=== PATIENT | male | born 1965 | race Two or more races ===

== ENCOUNTER 2022-01-04 18:38 | Inpatient (IN) | payer OTHER ==
[~2022-01-04] VITALS: Ht 167.6 cm; Wt 78.9 kg
--- NOTE | 2022-01-04 19:55 | NUR ---
BIB [facility],C/O CONSTIPATION X 4 DAYS AND UNALBE TO URINATE. PT IS A/O X 4, RR EVEN AND UNLABORED NO SOB NOTED, VSS, NO ACUTE DISTRESS NOTED. WILL CONTINUE TO MONITOR.
[2022-01-04] MEDS ORDERED: IV NS 0.9% 1,000 ML BAG IV ONE (20:00)
--- NOTE | 2022-01-04 20:06 | NUR ---
URINE COLLECTED AND SENT TO LAB
--- NOTE | 2022-01-04 20:06 | NUR ---
BLOOD COLLECTED AND SENTT O LAB
[2022-01-04 20:41] LABS: BASOPHILS % (AUTO) 0.7 % (0.0-2.0); EOSINOPHILS % (AUTO) 1.4 % (0.0-6.0); HEMATOCRIT 28 % (39-51); HEMOGLOBIN 8.9 g/dL (13.5-17.5); LYMPHOCYTES # (AUTO) 0.7 K/uL (0.8-4.8); MEAN CORPUSCULAR HGB CONC 32 g/dl (31.0-36.0); MEAN CORPUSCULAR VOLUME 87 fL (80-96); MONOCYTES # (AUTO) 0.4 K/uL (0.1-1.30); MONOCYTES % (AUTO) 5.8 % (2.0-12.0); NEUTROPHILS # (AUTO) 5.4 K/uL (1.8-8.9); NEUTROPHILS % (AUTO) 81.1 % (43.0-81.0); PLATELET COUNT (AUTO) 213 K/uL (150-450); RED BLOOD CELL COUNT(AUTO) 3.27 MIL/uL (4.5-6.0); WHITE BLOOD COUNT (AUTO) 6.6 K/uL (4.3-11.0)
--- NOTE | 2022-01-04 20:46 | NUR ---
FINANCE LEAD AT PT'S BEDSIDE
[2022-01-04 20:51] LABS: CALCIUM, SERUM 8.4 mg/dL (8.5-10.1); CREATININE 3.1 mg/dL (0.6-1.3); POTASSIUM 5.6 mmol/L (3.5-5.1)
[2022-01-04 20:58] LABS: ALBUMIN 3.2 g/dL (3.4-5.0); BILIRUBIN,DIRECT 0.1 mg/dL (0.0-0.2); BILIRUBIN,TOTAL 0.4 mg/dL (0.2-1.0); TOTAL PROTEIN, SERUM 8.1 g/dL (6.4-8.2)
[2022-01-04] MEDS ORDERED: MAGNESIUM CITRATE 296 ML BOTTLE PO ONE (21:30)
--- NOTE | 2022-01-04 22:14 | NUR ---
COVID SWAB DONE AND SENT TO LAB
[2022-01-04] MEDS ORDERED: HYDROCODONE/APAP 5/325MG TABLET PO PRN (22:30)
[2022-01-04] MEDS ORDERED: Z GUARD REMEDY 4 OZ OINT TP PRN (22:30)
[2022-01-04] MEDS ORDERED: SODIUM POLYSTYRENE SULFONATE 15 G/60 ML BOTTLE PO ONE (22:30)
[2022-01-04] MEDS ORDERED: ACETAMINOPHEN 325 MG TABLET PO PRN (22:30)
[2022-01-04] MEDS ORDERED: ONDANSETRON HCL/PF 4 MG/2 ML VIAL IVP PRN (22:30)
[2022-01-04] MEDS ORDERED: TEMAZEPAM 15 MG CAPSULE PO PRN (22:30)
[2022-01-04] MEDS ORDERED: MINERAL OIL 133 ML (PYXIS) 1 EA ENEMA RC PRN (22:30)
[2022-01-04] MEDS ORDERED: MAG HYDROX/AL HYDROX/SIMETH 30 ML UDC PO PRN (22:30)
[2022-01-05] MEDS ORDERED: MAGNESIUM HYDROXIDE 30 ML UDC ONE (01:08)
[2022-01-05] MEDS: MAGNESIUM HYDROXIDE 30 ML UDC PO PRN (01:10)
--- NOTE | 2022-01-05 02:10 | NUR ---
BED 304-1
--- NOTE | 2022-01-05 02:14 | NUR ---
REPORT GIVEN TO LAURO CONTI
--- NOTE | 2022-01-05 02:26 | NUR ---
PT TRANSFERRED TO VIA HOSPITAL PROTOCOL
--- NOTE | 2022-01-05 02:28 | NUR ---
PATIENT BEING TRANSAFERRED TO 304-1 VIA EMT
[2022-01-05 03:00] VITALS: BP 126/60
[2022-01-05] MEDS ORDERED: MECLIZINE HCL 12.5 MG TABLET PO PRN ×2 (03:30→10:00)
[2022-01-05] MEDS ORDERED: SODIUM POLYSTYRENE SULFONATE 15 G/60 ML BOTTLE ONE (03:48)
[2022-01-05] MEDS ORDERED: MECLIZINE HCL 25 MG TABLET PO PRN (04:00)
--- NOTE | 2022-01-05 04:14 | NUR ---
ADMISSION NOTE PATIENT BROUGHT IN UNIT AT AROUND 0229, ACCOMPANIED BY 1 ER PERSONNEL. PATIENT IS A/OX4. NO S/S OF APPARENT DISTRESS BUT SATURATION IN THE 70'S SO STARTED ON O2 3LPM VIA NC-- PER PATIENT HE TAKES OXYGEN IN THE B&C. DENIES PAIN AT THIS TIME. ABDOMEN SOFT AND TENDER TO TOUCH, DENIES PAIN NOR ANY DISCOMFORT UPON PALPATION. PATIENT NOTED TO HAVE ROSALES CATHETER DRAINING CLEAR, YELLOW URINE. L LOWER LEG NOTED TO HAVE WOUNDS DSG-- CLEANED AND CHANGED. PICTURES TAKEN. BELONGINGS CHECKED AND SIGNED. IV ACCESS ON L. HAND #20G NOTED TO BE INTACT AND PATENT. PATIENT WISHES TO BE FULL CODE AT THIS TIME AND REPORTS HAVING ADVANCED DIRECTIVE BUT DOES NOT KNOW WHERE PAPERWORKS ARE. PER PATIENT HE IS BASELINE WHEELCHAIR BOUND BECAUSE OF REPORTED FALL ON JULY 03 THIS YEAR. PATIENT IS COVID VACCINATED BUT REFUSED FLU AND PNEUMONIA VACCINATION D/T FEAR OF ADVERSE EFFECT. ORIENTED IN THE UNIT AND THE USE OF CALL LIGHT. SAFETY PUT INTO PLACE. WILL FOLLOW THROUGH DOCTOR'S ORDERS AND CONT. WITH THE PLAN OF CARE.
[2022-01-05 05:57] LABS: BASOPHILS # (AUTO) 0.1 K/uL (0.0-0.2); BASOPHILS % (AUTO) 0.9 % (0.0-2.0); EOSINOPHILS % (AUTO) 1.4 % (0.0-6.0); HEMATOCRIT 27 % (39-51); HEMOGLOBIN 8.4 g/dL (13.5-17.5); LYMPHOCYTES # (AUTO) 0.7 K/uL (0.8-4.8); MEAN CORPUSCULAR HGB CONC 32 g/dl (31.0-36.0); MEAN CORPUSCULAR VOLUME 87 fL (80-96); MONOCYTES # (AUTO) 0.5 K/uL (0.1-1.30); MONOCYTES % (AUTO) 7.4 % (2.0-12.0); NEUTROPHILS # (AUTO) 5.4 K/uL (1.8-8.9); NEUTROPHILS % (AUTO) 79.3 % (43.0-81.0); PLATELET COUNT (AUTO) 235 K/uL (150-450); RED BLOOD CELL COUNT(AUTO) 3.04 MIL/uL (4.5-6.0); WHITE BLOOD COUNT (AUTO) 6.8 K/uL (4.3-11.0)
[2022-01-05 06:19] LABS: CALCIUM, SERUM 8.2 mg/dL (8.5-10.1); CREATININE 3.1 mg/dL (0.6-1.3); MAGNESIUM 2.9 mg/dL (1.8-2.4); PHOSPHORUS 5.9 mg/dL (2.5-4.9); POTASSIUM 4.9 mmol/L (3.5-5.1)
[2022-01-05 06:32] LABS: THYROID STIMULATING HORMONE 1.875 uIU/mL (0.358-3.74)
--- NOTE | 2022-01-05 07:30 | NUR ---
noc rn closing needs attended. report given to Cyn for continuity of patient care.
--- NOTE | 2022-01-05 07:48 | NUR ---
RN OPENING NOTE PATIENT AWAKE IN BED RESTING. A/O X4. NO PAIN NOTED AT THIS TIME. ON ROOM AIR, NO DISTRESS OR SHORTNESS OF BREATH NOTED. IV ACCESS L HAND #20G, INTACT, PATENT AND FLUSHING WELL. PATIENT HAVE A ROSALES CATHETER IN PLACE AND DRAINING WELL. FALL AND SAFETY MEASURES IN PLACE, BED ALARM ON, BED IN LOW AND LOCK POSITION, CALL LIGHT AND TABLE WITHIN EASY REACH, SIDE RAILS UP X2. WILL ENDORSE TO SALES EXEC. Addendum: 01/05/22 at 0801 by Cyn Gomez RN ON 3L OXYGEN VIA NC, NO DISTRESS OR SHORTNESS OF BREATH. WILL CONTINUE TO MONITOR.
[2022-01-05 08:00] VITALS: BP 135/70
--- NOTE | 2022-01-05 08:13 | NUR ---
WOUND CARE CONSULT: PT PRESENTS WITH BILATERAL LOWER LEG REDNESS AND OPEN AREAS TO LEFT LOWER LEG, PRESENT ON ADMISSION. DR BENITEZ CALLED FOR DPM CONSULT REQUEST. PT IS CONTINENT AND INDEPENDENT WITH BED MOBILITY. MD IN AGREEMENT WITH PLAN OF CARE.
[2022-01-05] MEDS: PANTOPRAZOLE 40 MG TABLET.DR PO SCH (09:00)
[2022-01-05] MEDS: PSYLLIUM SEED 1 PKT PACKET PO SCH (09:00)
[2022-01-05] MEDS ORDERED: SORBITOL SOLUTION 70% 30 ML SOLUTION PO ONE (10:00)
[2022-01-05] MEDS ORDERED: LACTULOSE 10 G/15 ML UDC (PYXIS) PO ONE (10:00)
[2022-01-05] MEDS: IV NS 0.9% 1,000 ML IV PRN ×2 (11:32→12:36)
[2022-01-05 16:00] VITALS: BP 142/75
--- NOTE | 2022-01-05 19:23 | NUR ---
RN CLOSING NOTE PATIENT AWAKE IN BED RESTING. A/O X4. NO PAIN NOTED AT THIS TIME. ON 3L OXYGEN, NO DISTRESS OR SHORTNESS OF BREATH NOTED. IV ACCESS L HAND #20G, INTACT, PATENT AND FLUSHING WELL. PATIENT HAVE A ROSALES CATHETER IN PLACE AND DRAINING WELL, OUTPUT 800ML. SCHEDULE MEDICATIONS ADMINISTERED. WOUND CARE IMPLEMENTED. FALL AND SAFETY MEASURES IN PLACE, BED ALARM ON, BED IN LOW AND LOCK POSITION, CALL LIGHT AND TABLE WITHIN EASY REACH, SIDE RAILS UP X2. WILL ENDORSE TO GAS PUMPING STATION SUPERVISOR.
--- NOTE | 2022-01-05 19:30 | NUR ---
noc rn opening received patient in bed, with eyes closed. easy to arouse. no s/s of apparent distress on 3lpm of o2 via nc. no c/o pain at this time. l. hand 20 g running ns @75mls/hr. oriented and encouraged with the use of call light. romero cath draining clear yellow urine. safety in place. will continue with plan of care for patient.
[2022-01-05] MEDS: MECLIZINE HCL 25 MG TABLET PO PRN ×2 (19:44→23:06)
[2022-01-05 20:07] VITALS: BP 105/55
--- NOTE | 2022-01-06 04:18 | NUR ---
rn note- xiomara shelby returned unopened vial of zofran. patient was c/o nausea initially and when I pulled out medication and scanned patient said "it's getting better, can you hold on to it for now". told patient I'm going to return medication for now and he can ask for it when he needs it. given ice chip for now. will cont. to monitor.
--- NOTE | 2022-01-06 07:29 | NUR ---
noc rn closing needs attended. report given to Cyn for continuity of patient care.
--- NOTE | 2022-01-06 07:49 | NUR ---
RN OPENING NOTE PATIENT AWAKE IN BED RESTING. A/O X4. NO PAIN NOTED AT THIS TIME. ON 3L OXYGEN VIA NC, NO DISTRESS OR SHORTNESS OF BREATH NOTED. IV ACCESS L HAND #20G, INTACT, PATENT AND FLUSHING WELL. PATIENT HAVE A ROSALES CATHETER IN PLACE AND DRAINING WELL. FALL AND SAFETY MEASURES IN PLACE, BED ALARM ON, BED IN LOW AND LOCK POSITION, CALL LIGHT AND TABLE WITHIN EASY REACH, SIDE RAILS UP X2. WILL CONTINUE TO MONITOR.
[2022-01-06 08:00] VITALS: BP 170/74
[2022-01-06] MEDS: PSYLLIUM SEED 1 PKT PACKET PO SCH (08:34)
[2022-01-06] MEDS: PANTOPRAZOLE 40 MG TABLET.DR PO SCH (08:35)
--- NOTE | 2022-01-06 09:54 | NUR ---
TEXT DR. AZUL FOR MRI APPROVAL.
--- NOTE | 2022-01-06 09:55 | NUR ---
MRI ON HOLD PER DR. AZUL, HE WILL LET US KNOW.
--- NOTE | 2022-01-06 10:31 | NUR ---
MRI CX PER DR. AZUL
[2022-01-06] MEDS ORDERED: ATOR10TA PO (11:11)
[2022-01-06] MEDS ORDERED: ASPI-1169 PO (11:11)
[2022-01-06] MEDS ORDERED: MECL-159 PO (11:11)
[2022-01-06] MEDS: ASPIRIN 81 MG TAB.CHEW PO SCH (12:16)
[2022-01-06 16:00] VITALS: BP 173/79
[2022-01-06] MEDS: hydrALAZINE HCL 10 MG TABLET PO PRN (18:48)
--- NOTE | 2022-01-06 19:02 | NUR ---
RN CLOSING NOTE PATIENT AWAKE IN BED RESTING. A/O X4. NO PAIN NOTED AT THIS TIME. ON 5L OXYGEN VIA NC, NO DISTRESS OR SHORTNESS OF BREATH NOTED. IV ACCESS L HAND #20G, INTACT, PATENT AND FLUSHING WELL. PATIENT HAVE A ROSALES CATHETER IN PLACE AND DRAINING WELL. FALL AND SAFETY MEASURES IN PLACE, BED ALARM ON, BED IN LOW AND LOCK POSITION, CALL LIGHT AND TABLE WITHIN EASY REACH, SIDE RAILS UP X2. WILL ENDORSE TO SALES REPRESENTATIVE CASH REGISTERS.
--- NOTE | 2022-01-06 19:45 | NUR ---
MS RN OPENING NOTE PATIENT AWAKE LYING IN BED. A/O X4, PLEASANT AND COOPERATIVE. NO DYSPNEA OR SOB NOTED. SpO2= 92% ON 3L OXYGEN VIA NC. IV ACCESS TO L HAND #20G, INTACT, PATENT AND FLUSHING WELL. PATIENT HAS A ROSALES CATHETER IN PLACE AND DRAINING PALE YELLOW URINE TO GRAVITY. SAFETY MEASURES IN PLACE: BED IN LOWEST AND LOCKED POSITION, SIDE RAILS UP X 2, CALL LIGHT AND TABLE WITHIN EASY REACH. WILL CONTINUE TO MONITOR.
[2022-01-06 20:32] VITALS: BP 147/72
[2022-01-06] MEDS: ATORVASTATIN 10 MG TABLET PO SCH (22:23)
--- NOTE | 2022-01-07 06:43 | NUR ---
MS RN CLOSING NOTE PATIENT AWAKE LYING IN BED. A/O X4, PLEASANT AND COOPERATIVE. NO DYSPNEA OR SOB NOTED. SpO2= 92% ON 3L OXYGEN VIA NC. IV ACCESS TO L HAND #20G, INTACT, PATENT AND FLUSHING WELL. PATIENT HAS A ROSALES CATHETER IN PLACE AND DRAINING PALE YELLOW URINE TO GRAVITY. ALL DUE MEDS GIVEN ORDERED. SAFETY MEASURES IN PLACE: BED IN LOWEST AND LOCKED POSITION, SIDE RAILS UP X 2, CALL LIGHT AND TABLE WITHIN EASY REACH. WILL ENDORSE TO NEXT SHIFT FOR JACQUELINE.
--- NOTE | 2022-01-07 07:37 | NUR ---
MS RN OPENING NOTE RECEIVED PATIENT ASLEEP IN BED BUT EASILY AWAKEN; A/O X4. NO DYSPNEA OR SOB NOTED; ON 5L OF OXYGEN VIA NC, NO S/S OF SOB AND ACUTE DISTRESS NOTES AT THIS TIME. IV ACCESS TO L HAND #20G, INTACT, PATENT AND FLUSHING WELL. PATIENT HAS A ROSALES CATHETER IN PLACE AND DRAINING PALE YELLOW URINE. SAFETY MEASURES IN PLACE: BED IN LOWEST AND LOCKED POSITION, SIDE RAILS UP X 2, CALL LIGHT AND TABLE WITHIN EASY REACH, WILL CARRY OUT PLAN OF CARE DURING SHIFT.
[2022-01-07 08:00] VITALS: BP 165/76
[2022-01-07] MEDS: PSYLLIUM SEED 1 PKT PACKET PO SCH (08:57)
[2022-01-07] MEDS: hydrALAZINE HCL 10 MG TABLET PO PRN ×2 (08:57→20:19)
[2022-01-07] MEDS: PANTOPRAZOLE 40 MG TABLET.DR PO SCH (08:58)
[2022-01-07] MEDS: ASPIRIN 81 MG TAB.CHEW PO SCH (09:18)
[2022-01-07] MEDS: MECLIZINE HCL 25 MG TABLET PO PRN (11:20)
--- NOTE | 2022-01-07 11:20 | NUR ---
pt requested meclizine PRN for dizziness, RN administered as ordered
[2022-01-07 13:34] LABS: BASOPHILS % (AUTO) 0.4 % (0.0-2.0); EOSINOPHILS % (AUTO) 0.9 % (0.0-6.0); HEMATOCRIT 27 % (39-51); HEMOGLOBIN 8.8 g/dL (13.5-17.5); LYMPHOCYTES # (AUTO) 0.8 K/uL (0.8-4.8); LYMPHOCYTES % (AUTO) 11.6 % (20.0-44.0); MEAN CORPUSCULAR HGB CONC 33 g/dl (31.0-36.0); MEAN CORPUSCULAR VOLUME 85 fL (80-96); MONOCYTES # (AUTO) 0.8 K/uL (0.1-1.30); MONOCYTES % (AUTO) 10.8 % (2.0-12.0); NEUTROPHILS # (AUTO) 5.4 K/uL (1.8-8.9); NEUTROPHILS % (AUTO) 76.3 % (43.0-81.0); PLATELET COUNT (AUTO) 207 K/uL (150-450); RED BLOOD CELL COUNT(AUTO) 3.19 MIL/uL (4.5-6.0); WHITE BLOOD COUNT (AUTO) 7.1 K/uL (4.3-11.0)
[2022-01-07 15:01] LABS: CALCIUM, SERUM 8.2 mg/dL (8.5-10.1); CREATININE 2.8 mg/dL (0.6-1.3); POTASSIUM 4.7 mmol/L (3.5-5.1)
[2022-01-07 16:00] VITALS: BP 145/60
[2022-01-07] MEDS ORDERED: FUROSEMIDE 40 MG/4 ML VIAL IV ONE (16:30)
--- NOTE | 2022-01-07 17:30 | NUR ---
O2 titrated to 4L, pt O2 sat @ 96-97%, no s/s of sob at the moment, pt denies difficulty breathing, ivf discontinued per md.
--- NOTE | 2022-01-07 19:10 | NUR ---
MS RN CLOSING NOTES: PATIENT AWAKE, SITTING IN BED, A/O X4. TITRATED TO 4L OF O2 VIA NC, NO S/S OF SOB AND ACUTE DISTRESS NOTED AT THIS TIME. PT DENIES DIFFICULTY BREATHING AND PAIN AT THE MOMENT. IV ACCESS TO L HAND #20G, SALINE LOCKED, PATENT AND FLUSHING WELL. IV FLUIDS DC PER MD. PATIENT HAS A ROSALES CATHETER IN PLACE AND DRAINED TOTAL 1100 CC OF CLEAR YELLOW URINE DURING AM SHIFT. ALL DUE MEDS GIVEN, KEPT PT DRY CLEAN AND COMFORTABLE. SAFETY MEASURES IN PLACE: BED IN LOWEST AND LOCKED POSITION, SIDE RAILS UP X 2, CALL LIGHT AND TABLE WITHIN EASY REACH, WILL ENDORSE TO PM SHIFT.
--- NOTE | 2022-01-07 19:36 | NUR ---
MS LAURO OPENING NOTE PATIENT AWAKE LYING IN BED. A/O X4, PLEASANT AND COOPERATIVE. TOLERATING 4L OXYGEN VIA NC VERY WELL. NO DYSPNEA OR SOB NOTED. BREATHING IS EVEN AND UNLABORED. IV ACCESS TO L HAND #20G, INTACT, PATENT AND RUNNING NS AT 75 ML/HR. PATIENT HAS A ROSALES CATHETER IN PLACE AND DRAINING PALE YELLOW URINE TO GRAVITY. SAFETY MEASURES IN PLACE: BED IN LOWEST AND LOCKED POSITION, SIDE RAILS UP X 2, CALL LIGHT AND TABLE WITHIN EASY REACH. WILL CONTINUE TO MONITOR. Addendum: 01/07/22 at 2112 by GIUSEPPE ACUNA RN IV ACCESS TO L HAND #20G, INTACT AND PATENT AND SALINE LOCKED. IV NS AT 75 ML/HR WAS DISCONTINUED EARLIER THIS MORNING TO AVOID FURTHER FLUID OVERLOAD D/T CHF.
[2022-01-07 20:00] VITALS: BP 152/66
[2022-01-07] MEDS: ATORVASTATIN 10 MG TABLET PO SCH (21:19)
--- NOTE | 2022-01-07 21:52 | NUR ---
HYDRALAZINE 10 MG TAB PRN GIVEN AT 2019 FOR BLOOD PRESSURE= 152/66, ORDERED. NO SOB OR RESPIRATORY DISTRESS NOTED. PATIENT TOLERATED WELL AND HAS NO COMPLAINTS OF PAIN. WILL CONTINUE TO MONITOR BLOOD PRESSURE THROUGHOUT SHIFT.
[2022-01-08] MEDS: MECLIZINE HCL 25 MG TABLET PO PRN (05:41)
[2022-01-08 05:56] LABS: BASOPHILS % (AUTO) 0.5 % (0.0-2.0); EOSINOPHILS % (AUTO) 2.6 % (0.0-6.0); HEMATOCRIT 27 % (39-51); HEMOGLOBIN 8.7 g/dL (13.5-17.5); LYMPHOCYTES % (AUTO) 13.7 % (20.0-44.0); MEAN CORPUSCULAR HGB CONC 33 g/dl (31.0-36.0); MEAN CORPUSCULAR VOLUME 86 fL (80-96); MONOCYTES # (AUTO) 0.8 K/uL (0.1-1.30); MONOCYTES % (AUTO) 11.5 % (2.0-12.0); NEUTROPHILS % (AUTO) 71.7 % (43.0-81.0); PLATELET COUNT (AUTO) 210 K/uL (150-450); RED BLOOD CELL COUNT(AUTO) 3.12 MIL/uL (4.5-6.0)
--- NOTE | 2022-01-08 06:51 | NUR ---
MS RN CLOSING NOTE: PATIENT ASLEEP IN BED AT CURRENT TIME. A/O X 4 WHILE AWAKE, PLEASANT AND COOPERATIVE. TOLERATING 4L OXYGEN VIA NC VERY WELL. NO DYSPNEA OR SOB NOTED. BREATHING IS EVEN AND UNLABORED. IV ACCESS TO L HAND #20G, INTACT, PATENT AND RUNNING NS AT 75 ML/HR. PATIENT HAS A ROSALES CATHETER IN PLACE AND DRAINING PALE YELLOW URINE TO GRAVITY. SAFETY MEASURES IN PLACE: BED IN LOWEST AND LOCKED POSITION, SIDE RAILS UP X 2, CALL LIGHT AND TABLE WITHIN EASY REACH. WILL ENDORSE TO NEXT SHIFT FOR JACQUELINE.
[2022-01-08 07:00] VITALS: BP 185/84
--- NOTE | 2022-01-08 07:30 | NUR ---
MS RN OPENING NOTES RECEIVED PATIENT ON BED AWAKE AND A/O X4. ON ROOM AIR TOLERATING WELL. NO SOB NOTED. NOT IN DISTRESS. WITH NO COMPLAINTS OF PAIN OR DISCOMFORT AT THIS TIME. WITH IV ACCESS AT THE LEFT HAND G20 SALINE LOCKED, PATENT AND INTACT. SAFETY MEASURES IN PLACED. CALL LIGHT WITHIN REACH. BED ON LOWEST LOCKED POSITION, SIDE RAILS UP X2. WILL CONTINUE TO MONITOR.
[2022-01-08 08:31] LABS: CALCIUM, SERUM 8.2 mg/dL (8.5-10.1); CREATININE 2.6 mg/dL (0.6-1.3); MAGNESIUM 2.6 mg/dL (1.8-2.4); POTASSIUM 4.2 mmol/L (3.5-5.1)
[2022-01-08] MEDS: PSYLLIUM SEED 1 PKT PACKET PO SCH (08:38)
[2022-01-08] MEDS: PANTOPRAZOLE 40 MG TABLET.DR PO SCH (08:38)
[2022-01-08] MEDS: ASPIRIN 81 MG TAB.CHEW PO SCH (08:39)
[2022-01-08 16:00] VITALS: BP 185/80
[2022-01-08] MEDS ORDERED: FUROSEMIDE 40 MG/4 ML VIAL IV ONE (17:00)
--- NOTE | 2022-01-08 18:36 | NUR ---
MS RN CLOSING NOTES PATIENT ON BED AWAKE AND A/O X4. ON O2 AT 3LPM VIA NASAL CANNULA TOLERATING WELL. NO SOB NOTED. NOT IN DISTRESS. WITH NO COMPLAINTS OF PAIN OR DISCOMFORT AT THIS TIME. WITH IV ACCESS AT THE LEFT HAND G20 SALINE LOCKED, PATENT AND INTACT. WOUND CARE AT THE LEFT LOWER LEG DONE. DUE MEDS GIVEN. SAFETY MEASURES IN PLACED. CALL LIGHT WITHIN REACH. BED ON LOWEST LOCKED POSITION, SIDE RAILS UP X2. WILL ENDORSE TO NEXT SHIFT FOR JACQUELINE.
[2022-01-08 20:00] VITALS: BP 172/70
--- NOTE | 2022-01-08 20:34 | NUR ---
RN OPENING NOTE PATIENT AWAKE IN BED. A/OX4. NO S/S OF DISTRESS, BREATHING WITHOUT DIFFICULTY ON 3L NC. L-HAND #20 SL INTACT AND PATENT. SAFETY MEASURES IN PLACE: BED LOCKED IN PLACE AND AT LOWEST POSITION, RAILS UP X2, CALL ARROYO WITHIN REACH. WILL CONTINUE O MONITOR PATIENT.
[2022-01-08] MEDS: ATORVASTATIN 10 MG TABLET PO SCH (21:46)
[2022-01-08] MEDS: MAGNESIUM HYDROXIDE 30 ML UDC PO PRN (21:46)
[2022-01-09 06:38] LABS: CALCIUM, SERUM 8.1 mg/dL (8.5-10.1); CREATININE 2.7 mg/dL (0.6-1.3); MAGNESIUM 2.4 mg/dL (1.8-2.4); PHOSPHORUS 4.2 mg/dL (2.5-4.9); POTASSIUM 4.4 mmol/L (3.5-5.1)
[2022-01-09 06:43] LABS: BASOPHILS % (AUTO) 0.6 % (0.0-2.0); EOSINOPHILS % (AUTO) 3.3 % (0.0-6.0); HEMATOCRIT 28 % (39-51); LYMPHOCYTES # (AUTO) 1.1 K/uL (0.8-4.8); LYMPHOCYTES % (AUTO) 15.3 % (20.0-44.0); MEAN CORPUSCULAR HGB CONC 32 g/dl (31.0-36.0); MEAN CORPUSCULAR VOLUME 84 fL (80-96); MONOCYTES % (AUTO) 13.9 % (2.0-12.0); NEUTROPHILS # (AUTO) 4.9 K/uL (1.8-8.9); NEUTROPHILS % (AUTO) 66.9 % (43.0-81.0); PLATELET COUNT (AUTO) 246 K/uL (150-450); RED BLOOD CELL COUNT(AUTO) 3.32 MIL/uL (4.5-6.0); WHITE BLOOD COUNT (AUTO) 7.3 K/uL (4.3-11.0)
--- NOTE | 2022-01-09 06:57 | NUR ---
RN CLOSING NOTE PATIENT ASLEEP IN BED. A/OX4. NO S/S OF DISTRESS, BREATHING WITHOUT DIFFICULTY ON 3L NC. L-HAND #20 SL INTACT AND PATENT. SAFETY MEASURES IN PLACE: BED LOCKED AND AT LOWEST POSITION, RAILS UP X2, CALL ARROYO WITHIN REACH. WILL ENDORSE TO NEXT SHIFT FOR JACQUELINE.
[2022-01-09 07:00] VITALS: BP 158/79
--- NOTE | 2022-01-09 07:30 | NUR ---
RN Opening Note Patient AOx4, able to express own concerns. Patient laying in bed awake,. Discussed plan of care. Patient educated on importance of hydrating, moving and repositioning to help with bowel movement. IV Fluids running as ordered, no signs of infiltration and no pain reported on IV Site. All safety precautions taken, call light and table within reach. Bed at lowest position
[2022-01-09] MEDS: PANTOPRAZOLE 40 MG TABLET.DR PO SCH (07:46)
[2022-01-09] MEDS: ASPIRIN 81 MG TAB.CHEW PO SCH (08:17)
[2022-01-09] MEDS: PSYLLIUM SEED 1 PKT PACKET PO SCH (08:17)
[2022-01-09] MEDS: VALSARTAN 80 MG TABLET PO SCH (12:23)
--- NOTE | 2022-01-09 18:41 | NUR ---
RN Opening Note Patient AOx4. Able to express his own concerns. Patient shared gender history. States he was born a female and at 18 years of age initiated his transgender process, with hormone therapy and breast reduction. Patient sates he has a vagina since chose not to go forward with penis implant surgery. States he has no problem sharing his history and will openly discuss if needed. Patient has a Knutson catheter, remained intact and in place throughout shift. Provided patient care as needed and administered medications as prescribed. All safety precautions taken, Patient remained safe throughout shift, call light and table within reach, bed at lowest posit
[2022-01-09 20:00] VITALS: BP 180/75
--- NOTE | 2022-01-09 20:08 | NUR ---
RN OPENING NOTE PATIENT AWAKE IN BED. A/OX4. NO S/S OF DISTRESS, BREATHING WITHOUT DIFFICULTY ON 3L NC. L-HAND #20 SL INTACT AND PATENT. SAFETY MEASURES IN PLACE: BED LOCKED AND AT LOWEST POSITION, RAILS UP X2, CALL ARROYO WITHIN REACH. WILL CONTINUE TO MONITOR PATIENT.
[2022-01-09] MEDS: MAGNESIUM HYDROXIDE 30 ML UDC PO PRN (21:17)
[2022-01-09] MEDS: ATORVASTATIN 10 MG TABLET PO SCH (21:17)
[2022-01-09] MEDS: hydrALAZINE HCL 10 MG TABLET PO PRN (23:40)
[2022-01-10] MEDS: MECLIZINE HCL 25 MG TABLET PO PRN (05:21)
--- NOTE | 2022-01-10 06:44 | NUR ---
RN CLOSING NOTE PATIENT AWAKE IN BED. A/OX4. NO S/S OF DISTRESS, BREATHING WITHOUT DIFFICULTY ON 3L. L-HAND #20 SL INTACT AND PATENT. SAFETY MEASURES IN PLACE: BED LOCKED IN PLACE, AT LOWEST POSITION, RAILS UP X2, CALL ARROYO WITHIN REACH. WILL ENDORSE TO NEXT SHIFT FOR JACQUELINE.
[2022-01-10 06:58] LABS: BASOPHILS # (AUTO) 0.1 K/uL (0.0-0.2); BASOPHILS % (AUTO) 0.7 % (0.0-2.0); EOSINOPHILS % (AUTO) 3.6 % (0.0-6.0); HEMATOCRIT 29 % (39-51); HEMOGLOBIN 9.4 g/dL (13.5-17.5); LYMPHOCYTES # (AUTO) 1.1 K/uL (0.8-4.8); LYMPHOCYTES % (AUTO) 14.4 % (20.0-44.0); MEAN CORPUSCULAR HGB CONC 32 g/dl (31.0-36.0); MEAN CORPUSCULAR VOLUME 85 fL (80-96); MONOCYTES # (AUTO) 1.1 K/uL (0.1-1.30); MONOCYTES % (AUTO) 14.3 % (2.0-12.0); NEUTROPHILS # (AUTO) 4.9 K/uL (1.8-8.9); PLATELET COUNT (AUTO) 251 K/uL (150-450); RED BLOOD CELL COUNT(AUTO) 3.45 MIL/uL (4.5-6.0); WHITE BLOOD COUNT (AUTO) 7.4 K/uL (4.3-11.0)
[2022-01-10 07:00] VITALS: BP 165/80
[2022-01-10 07:23] LABS: CALCIUM, SERUM 8.4 mg/dL (8.5-10.1); CREATININE 2.6 mg/dL (0.6-1.3); MAGNESIUM 2.8 mg/dL (1.8-2.4); POTASSIUM 4.8 mmol/L (3.5-5.1)
--- NOTE | 2022-01-10 07:30 | NUR ---
RN Receiving Report. Patient AOx3-4 able to express his own concerns. Patient with IV s/l no signs of infiltration, no pain reported to site. Patient asking for extra food, made patient aware of current renal diet. Patient upset stating he is still hungry and has not had a bowel movement in over 5 days. Educated on importance of fluids, provided prune juice. Will continue to monitor throughout shift, provide care as needed. All safety precautions taken, call light and table within reach, bed at lowest position.
[2022-01-10] MEDS: PANTOPRAZOLE 40 MG TABLET.DR PO SCH (07:47)
[2022-01-10] MEDS: PSYLLIUM SEED 1 PKT PACKET PO SCH (08:26)
[2022-01-10] MEDS: ASPIRIN 81 MG TAB.CHEW PO SCH (08:26)
[2022-01-10] MEDS: VALSARTAN 80 MG TABLET PO SCH (08:26)
[2022-01-10] MEDS ORDERED: LACTULOSE 10 G/15 ML UDC (PYXIS) PO ONE (11:30)
[2022-01-10] MEDS ORDERED: SORBITOL SOLUTION 70% 30 ML SOLUTION PO ONE (12:00)
[2022-01-10 16:00] VITALS: BP 177/82
--- NOTE | 2022-01-10 18:20 | NUR ---
RN Opening Note Patient AOx4 able to express his concerns. Patient states he is now feeling relief after bowel movement at 1430 and 1800. Large, lose, brown bowel movement on bed pad and then transferred to a commode. Administered medications as ordered and provided care as needed. Patient with no signs of distress or discomfort, all safety precautions taken, bed and table within reach.
--- NOTE | 2022-01-10 19:50 | NUR ---
MS RN OPENING NOTES: RECEIVED PATIENT AWAKE IN BED, BED IN LOW POSITION CALL LIGHTS WITHIN REACH, NO COMPLAIN OF PAIN AND DISCOMFORT AT THIS TIME, ON ROOM AIR SATURATING WELL, NO SOB WAS OBSERVED, PATIENT AMBULATES WITH SUPERVISION, IV LINE AT LEFT HAND #20 SL, PATIEN KEPT CLEAN AND DRY ALL NEEDS MET WILL CONTINUE TO MONITOR.
[2022-01-10 20:00] VITALS: BP 169/68
[2022-01-10 22:29] VITALS: BP 161/62
[2022-01-10] MEDS: hydrALAZINE HCL 10 MG TABLET PO PRN (22:30)
[2022-01-10] MEDS: ATORVASTATIN 10 MG TABLET PO SCH (22:30)
--- NOTE | 2022-01-11 06:22 | NUR ---
MS RN CLOSING NOTES: PATIENT SLEEP IN BED COMFORTABLY, AROUSABLE TO VERBAL STIMULI, BED IN LOW POSITION, CALL LIGHTS WITHIN REACH, NO COMPLAIN OF PAIN AND DISCOMFORT AT THIS TIME, ON O2 INHALATION AT 3LPM SATURATING WELL, ON ROSALES CATHETER AT 1000ML/HR OUTPUT.WEEKLY SKIN ASSESSMENT DONE AND DOCUMENT, PATIENT KEPT CLEAN AND DRY ALL NEEDS MET ENDORSE TO INCOMING SHIFT.
[2022-01-11 08:00] VITALS: BP 154/67
[2022-01-11] MEDS: PANTOPRAZOLE 40 MG TABLET.DR PO SCH (08:27)
[2022-01-11] MEDS: VALSARTAN 80 MG TABLET PO SCH (08:28)
[2022-01-11] MEDS: PSYLLIUM SEED 1 PKT PACKET PO SCH (08:28)
[2022-01-11] MEDS: ASPIRIN 81 MG TAB.CHEW PO SCH (08:28)
--- NOTE | 2022-01-11 09:28 | NUR ---
MS RN OPENING NOTE RECEIVED PATIENT AWAKE, SITTING IN BED. A/O X4, ABLE TO MAKE NEEDS KNOWN. ON 3L OF OXYGEN VIA NC, NO S/S OF SOB AND ACUTE DISTRESS NOTED AT THIS TIME. IV ACCESS @ L HAND #20G, SL, INTACT, PATENT AND FLUSHING WELL. PATIENT HAS A ROSALES CATHETER IN PLACE AND DRAINING PALE YELLOW URINE. SAFETY MEASURES IN PLACE: BED IN LOWEST AND LOCKED POSITION, SIDE RAILS UP X 2, CALL LIGHT AND TABLE WITHIN EASY REACH, WILL CARRY OUT PLAN OF CARE DURING SHIFT.
[2022-01-11 16:00] VITALS: BP 163/72
--- NOTE | 2022-01-11 19:34 | NUR ---
MS RN OPENING NOTE RECEIVED PATIENT AWAKE, SITTING IN BED. A/O X4, ABLE TO MAKE NEEDS KNOWN. ON 3L OF OXYGEN VIA NC, NO S/S OF SOB AND ACUTE DISTRESS NOTED AT THIS TIME. NO IV ACCESS AT THIS TIME PT PULLED IV OUT WILL REINSERT. INTACT, PATENT AND FLUSHING WELL. PATIENT HAS A ROSALES CATHETER IN PLACE AND DRAINING PALE YELLOW URINE. SAFETY MEASURES IN PLACE. BED IN LOWEST AND LOCKED POSITION, SIDE RAILS UP X 2, CALL LIGHT AND TABLE WITHIN EASY REACH.
--- NOTE | 2022-01-11 19:42 | NUR ---
MS RN CLOSING NOTES: PATIENT AWAKE, SITTING IN BED. A/O X4, ABLE TO MAKE NEEDS KNOWN. ON 3L OF OXYGEN VIA NC, NO S/S OF SOB AND ACUTE DISTRESS NOTED AT THIS TIME. IV ACCESS @ L HAND #20G, SL, INTACT, PATENT. PATIENT HAS A ROSALES CATHETER IN PLACE, DRAINED PALE YELLOW URINE= 875 CC DURING AM SHIFT. SAFETY MEASURES IN PLACE: BED IN LOWEST AND LOCKED POSITION, SIDE RAILS UP X 2, CALL LIGHT AND TABLE WITHIN EASY REACH, ENDORSED TO PM SHIFT FOR JACQUELINE.
--- NOTE | 2022-01-11 19:59 | NUR ---
MS RN OPENING NOTES: PATIENT AWAKE, SITTING IN BED. A/O X4, ABLE TO MAKE NEEDS KNOWN. ON 3L OF OXYGEN VIA NC, NO S/S OF SOB AND ACUTE DISTRESS NOTED AT THIS TIME. IV ACCESS @ L HAND #20G, SL, INTACT, PATENT. PATIENT HAS A ROSALES CATHETER IN PLACE, DRAINED PALE YELLOW URINE. SAFETY MEASURES IN PLACE: BED IN LOWEST AND LOCKED POSITION, SIDE RAILS UP X 2, CALL LIGHT AND TABLE WITHIN EASY REACH
[2022-01-11 20:00] VITALS: BP 167/65
[2022-01-11] MEDS: ATORVASTATIN 10 MG TABLET PO SCH (22:13)
--- NOTE | 2022-01-12 06:35 | NUR ---
MS RN CLOSING NOTES: PATIENT AWAKE, SITTING IN BED. A/O X4, ABLE TO MAKE NEEDS KNOWN. ON 3L OF OXYGEN VIA NC, NO S/S OF SOB AND ACUTE DISTRESS NOTED AT THIS TIME. IV ACCESS @ L HAND #20G, SL, INTACT, PATENT. PATIENT HAS A ROSALES CATHETER IN PLACE, DRAINED PALE YELLOW URINE. SAFETY MEASURES IN PLACE: BED IN LOWEST AND LOCKED POSITION, SIDE RAILS UP X 2, CALL LIGHT AND TABLE WITHIN EASY REACH
--- NOTE | 2022-01-12 07:30 | NUR ---
RN Receiving Report. Patient AOx3-4 able to express his own concerns. Patient with IV s/l no signs of infiltration, no pain reported to site. Patient with no signs of distress or discomfort. Made patient aware of care plan, he agrees, pending facility acceptance. Will continue to monitor throughout shift, provide care as needed. All safety precautions taken, call light and table within reach, bed at lowest position.
[2022-01-12] MEDS: PANTOPRAZOLE 40 MG TABLET.DR PO SCH (07:45)
[2022-01-12] MEDS: MECLIZINE HCL 25 MG TABLET PO PRN (07:45)
[2022-01-12 08:00] VITALS: BP 174/88
[2022-01-12] MEDS: PSYLLIUM SEED 1 PKT PACKET PO SCH (08:57)
[2022-01-12] MEDS: ASPIRIN 81 MG TAB.CHEW PO SCH (08:57)
[2022-01-12] MEDS: VALSARTAN 80 MG TABLET PO SCH (08:59)
[2022-01-12 16:04] VITALS: BP 169/82
[2022-01-12] MEDS: MAGNESIUM HYDROXIDE 30 ML UDC PO PRN (16:54)
--- NOTE | 2022-01-12 18:15 | NUR ---
RN Closing Note Patient AOx4, able to express his own concerns. Patient remained safe throughout shift states he feels better now that food portions have been increased, as ordered by Dr. Sinha. Patient states he is ready for discharge as soon as CM finds him a facility. Educated patient on importance of monitoring diet and eating to help with constipation. All safety precautions taken throughout shift, call light and table within reach, bed at lowest position. Patient remained safe and stable throughout shift.
--- NOTE | 2022-01-12 19:38 | NUR ---
RN OPENING NOTE PATIENT RECEIVED AWAKE IN BED. A/OX4. NO S/S OF DISTRESS, BREATHING WITHOUT DIFFICULTY ON 3L NC. L-HAND #20 SL INTACT AND PATENT. SAFETY MEASURES IN PLACE: BED LOCKED IN PLACE AND AT LOWEST POSITION, RAILS UP X2, CALL ARROYO WITHIN REACH. WILL CONTINUE TO MONITOR PATIENT.
[2022-01-12 20:00] VITALS: BP 160/77
[2022-01-12] MEDS: hydrALAZINE HCL 10 MG TABLET PO PRN (20:35)
[2022-01-12] MEDS: ATORVASTATIN 10 MG TABLET PO SCH (21:12)
--- NOTE | 2022-01-13 07:30 | NUR ---
RN Receiving Report PT AOx4 able to express his own concerns. Patient states he has no complains. Discussed plan of care with patient he verbalized agreement. All safety precautions taken, call light and table within reach. Bed at lowest position. Will continue to monitor throughout shift and provide care as needed.
[2022-01-13] MEDS: PANTOPRAZOLE 40 MG TABLET.DR PO SCH (07:41)
[2022-01-13] MEDS: MECLIZINE HCL 25 MG TABLET PO PRN (07:46)
[2022-01-13 08:00] VITALS: BP 167/62
[2022-01-13] MEDS: ASPIRIN 81 MG TAB.CHEW PO SCH (08:59)
[2022-01-13] MEDS: VALSARTAN 80 MG TABLET PO SCH (08:59)
[2022-01-13] MEDS: PSYLLIUM SEED 1 PKT PACKET PO SCH (08:59)
[2022-01-13 16:00] VITALS: BP 168/88
[2022-01-13 16:15] LABS: CALCIUM, SERUM 8.3 mg/dL (8.5-10.1); POTASSIUM 6.1 mmol/L (3.5-5.1)
--- NOTE | 2022-01-13 18:08 | NUR ---
RN Closing Report PT AOx4 able to express his own concerns. Patient aware of pending discharge and agrees with plan. Educated on importance of nutrition and hydration to help regulate bowel movements, verbalized understanding. All safety precautions taken, call light and table within reach. Bed at lowest position. Will continue to monitor throughout shift and provide care as needed.
[2022-01-13 20:00] VITALS: BP 158/81
[2022-01-13] MEDS: ATORVASTATIN 10 MG TABLET PO SCH (21:15)
--- NOTE | 2022-01-13 22:30 | NUR ---
RN OPENING NOTE PATIENT AWAKE IN BED. A/OX4. NO S/S OF DISTRESS, BREATHING WITHOUT DIFFICULTY ON 2L NC. L-HAND #20 SL INTACT AND PATENT. SAFETY MEASURES IN PLACE: BED LOCKED AND IN LOWEST POSITION, RAILS UP X2, CALL ARROYO WITHIN REACH. WILL CONTINUE TO MONITOR PATIENT.
[2022-01-14] MEDS ORDERED: INSULIN REGULAR, HUMAN 100 UNIT/ML 3 ML VIAL IV ONE
[2022-01-14] MEDS ORDERED: DEXTROSE 50%-WATER 50 ML DISP.SYRIN IVP ONE
--- NOTE | 2022-01-14 00:11 | NUR ---
RN NOTE SPOKE W/ ON-CALL BRISA PRATT, REGARDING CURRENT ELEVATED POTASSIUM LEVEL OF 6.1 (UP FROM 4.8). ORDERS WERE GIVEN FOR LACTULOSE 20 BID INSULIN REGULAR 10 UNITS IV X1 I AMP OF D50 (INSULIN AND D50 TO BE GIVEN TOGETHER) ORDERS PLACED. AWAITING PHARMACY. PATIENT STABLE; WILL CONTINUE TO MONITOR PATIENT.
[2022-01-14] MEDS: MECLIZINE HCL 25 MG TABLET PO PRN (00:44)
--- NOTE | 2022-01-14 07:30 | NUR ---
RN Receiving Report. Patient AOx4, able to express his own concerns. Patient is in bed, states he is hungry, breakfast tray should be arriving soon. Patient shows no signs of distress or discomfort. Introduced myself and discussed plan of care with patient, patient agrees. Patient aware of pending facility placement. All safety precautions taken, call light and table within reach, bed at lowest position.
--- NOTE | 2022-01-14 07:31 | NUR ---
RN CLOSING NOTE PATIENT ASLEEP IN BED. A/OX4. NO S/S OF DISTRESS, BREATHING WITHOUT DIFFICULTY ON 2L NC. L-HAND #20 SL INTACT AND PATENT; RAC #20 SL INTACT AND PATENT. SAFETY MEASURES IN PLACE: BED LOCKED IN PLACE AND AT LOWEST POSITION, RAILS UP X2, CALL ARROYO WITHIN REACH. WILL ENDORSE TO NEXT SHIFT FOR JACQUELINE.
[2022-01-14 08:08] LABS: CALCIUM, SERUM 8.7 mg/dL (8.5-10.1); CREATININE 2.9 mg/dL (0.6-1.3); POTASSIUM 5.6 mmol/L (3.5-5.1)
[2022-01-14] MEDS: PANTOPRAZOLE 40 MG TABLET.DR PO SCH (08:32)
[2022-01-14] MEDS: VALSARTAN 80 MG TABLET PO SCH (08:32)
[2022-01-14] MEDS: PSYLLIUM SEED 1 PKT PACKET PO SCH (08:33)
[2022-01-14] MEDS: ASPIRIN 81 MG TAB.CHEW PO SCH (08:33)
[2022-01-14 09:05] VITALS: BP 174/80
[2022-01-14 16:09] VITALS: BP 119/86
[2022-01-14] MEDS: LACTULOSE 10 G/15 ML UDC (PYXIS) PO PRN (18:14)
--- NOTE | 2022-01-14 18:36 | NUR ---
RN Closing Report. Patient AOx4 able to express his own concerns. Patient educated on importance of monitoring food intake and decreasing food that are rich in potassium. Educated on importance of maintaining potassium levels within normal scale. Call light and table within reach, bed at lowest position. Will endorse report to night nurse for continuity of care.
[2022-01-14 20:34] VITALS: BP 177/78
[2022-01-14] MEDS: hydrALAZINE HCL 10 MG TABLET PO PRN (20:41)
[2022-01-14] MEDS: ATORVASTATIN 10 MG TABLET PO SCH (20:41)
[2022-01-14 20:52] VITALS: BP 177/78
[2022-01-15 05:14] VITALS: BP 173/87
[2022-01-15] MEDS: hydrALAZINE HCL 10 MG TABLET PO PRN (05:14)
[2022-01-15] MEDS: LACTULOSE 10 G/15 ML UDC (PYXIS) PO PRN (05:15)
[2022-01-15] MEDS: MECLIZINE HCL 25 MG TABLET PO PRN (05:15)
--- NOTE | 2022-01-15 06:12 | NUR ---
END OF SHIFT REPORT Patient in bed, Alert Oriented x3. Oxygen weaned down to 1L NC, tolerating well, denies shortness of breath with exertion. IV RFA intact. Elevated BP high 170's given Hydralazine x2 during the shift. Up to BSC, feels dizzy, no BM. Given Lactulose PO with no result yet. Encouraged ambulation. Fall precaution maintained. Pending dc, awaiting Placement. Will endorse to oncoming RN.
--- NOTE | 2022-01-15 07:00 | NUR ---
MS RN OPENING NOTE PATIENT LAYING IN BED, A/O X 3, ABLE TO MAKE NEEDS KNOWN. TOLERATING WELL ON 1 LPM O2 VIA CANNULA WITH NO S/S RESPIRATORY DISTRESS. NO COMPLAINTS OF PAIN OR DISCOMFORT AT THIS TIME. R FA # 20 G SL CLEAN, INTACT, AND FLUSHING WELL. SAFETY MEASURES IN PLACE: BED IN LOWEST LOCKED POSITION, SIDE RAILS UP X 2, CALL LIGHT WITHIN REACH. WILL CONTINUE TO MONITOR.
[2022-01-15] MEDS: PANTOPRAZOLE 40 MG TABLET.DR PO SCH (07:46)
[2022-01-15 08:43] VITALS: BP 158/66
[2022-01-15] MEDS: ASPIRIN 81 MG TAB.CHEW PO SCH (09:15)
[2022-01-15] MEDS: PSYLLIUM SEED 1 PKT PACKET PO SCH (09:15)
[2022-01-15 09:17] VITALS: BP 158/66
[2022-01-15] MEDS: VALSARTAN 80 MG TABLET PO SCH (09:17)
--- NOTE | 2022-01-15 09:36 | NUR ---
MS RN NOTES PATIENT WITH 1 LARGE BM THIS MORNING. PATIENT STATED PREVIOUS BM WAS 1-2 DAYS AGO.
--- NOTE | 2022-01-15 10:50 | NUR ---
MS RN NOTES ATTENDING MD AND AVIONICS ELECTRICAL ENGINEER MADE AWARE OF PATIENT BUN, Cr, and POTASSIUM LABS FROM 01/14. ORDERS RECEIVED FOR KAYEXALATE 30 MG PO AND BMP LAB DRAW. ORDERS PLACED AND IMPLEMENTED.
[2022-01-15] MEDS: SODIUM POLYSTYRENE SULFONATE 15 G/60 ML BOTTLE PO ONE ×2 (11:43→11:50)
--- NOTE | 2022-01-15 13:25 | NUR ---
Public Space Attendant Consult SARATH was approached by CM to support with consult for missing personal items. SARATH met with pt. at bedside. Pt. is a 56 y.o. male who was admitted for C/O constipation. SARATH was informed that pt. had left his belongings in is prior placement [facility] but was informed by Rubén Pat that they did not have his items. Pt. was stressed and frustrated and appeared alert and oriented x4. Pt. was disheveled and had a congruent mood. SARATH validated his feelings and situation and inquired for possible numbers to contact. SARATH called the numbers provided by pt. ([phone], but all numbers were not able to reach the facility). Pt. is being transferred to [facility] and was pending transportation. SARATH will contact [facility] Marie ([address] [place] [address] TEL: [phone]) to inquire if they could support pt. locate his belongings. SARATH informed pt. of situation and validated pt.s concerns in which pt. appeared agreeable.
--- NOTE | 2022-01-15 15:50 | NUR ---
MS RN NOTES PATIENT MADE AWARE OF MD DISCHARGE ORDER AND INSTRUCTIONS. PATIENT VERBALIZED UNDERSTANDING OF MD DISCHARGE INSTRUCTIONS AND SIGNED MD DISCHARGE INSTRUCTIONS SHEET. PATIENT VERBALIZED POSSESSION OF ALL BELONGINGS WHICH HE ARRIVED TO THE HOSPITAL WITH AND SIGNED BELONGINGS LIST. PATIENT STATED HE WOULD BE CALLING AN UBER TO TRANSPORT THE REST OF HIS MISSING BELONGINGS FROM [facility] TO THE [facility] ASSIST[facility] LIVING [facility] IN [place]. IV LINE, ID BAND, AND ROSALES CATHETER REMOVED. PATIENT TRANSPORTED OFF OF UNIT VIA GURNEY ASSISTED BY 2 REGISTRATION REP. PATIENT STABLE AT TIME OF DISCHARGE.
== END 2022-01-15 15:57 | DRG 194 ==
LOC: EDBD 19:52 → ER 19:52 → TELE 01-05 02:13 → MED 01-05 02:40
PROVIDERS: ADMIT Nurse Practitioner Acute Care; ATTEND Nurse Practitioner Acute Care
DX: I13.0 Hypertensive heart and chronic kidney disease with heart failure and stage 1 through stage 4 chronic kidney disease, or unspecified chronic kidney disease (principal); N17.0 Acute kidney failure with tubular necrosis; I63.531 Cerebral infarction due to unspecified occlusion or stenosis of right posterior cerebral artery; E44.1 Mild protein-calorie malnutrition; I87.312 Chronic venous hypertension (idiopathic) with ulcer of left lower extremity; D63.8 Anemia in other chronic diseases classified elsewhere; E88.09 Other disorders of plasma-protein metabolism, not elsewhere classified; L97.829 Non-pressure chronic ulcer of other part of left lower leg with unspecified severity; I50.33 Acute on chronic diastolic (congestive) heart failure; E87.5 Hyperkalemia; N18.9 Chronic kidney disease, unspecified; E83.52 Hypercalcemia; Z20.822 Contact with and (suspected) exposure to COVID-19; Z88.8 Allergy status to other drugs, medicaments and biological substances; Z79.82 Long term (current) use of aspirin; Z79.899 Other long term (current) drug therapy; K59.00 Constipation, unspecified; R42 Dizziness and giddiness; I87.8 Other specified disorders of veins; R09.02 Hypoxemia; Z86.73 Personal history of transient ischemic attack (TIA), and cerebral infarction without residual deficits
CPT/HCPCS: 36415; 70450-TC; 71045-TC; 74021; 76770-TC; 80048-TC; 80076-TC; 82962-TC; 83690-TC; 83735-TC; 84100-TC; 84443-TC; 85025-TC; 87081-TC; 92526; 93307-TC; 93970-TC; 94799-TC; 97112-TC; 97116-TC; 97530-TC; A6253; A6403; C9803; G0378; J1815; J1940; J2405; J7030; J8597